=== PATIENT | female | born 1990 | race Caucasian/White ===

== ENCOUNTER 2017-09-23 12:35 | Emergency (ER) | payer SELFPAY | END 2017-09-23 13:03 | disposition home or self-care (01) | LOC: E/R 12:35 | DX: J20.9 Acute bronchitis, unspecified (principal) | CPT/HCPCS: 99284 ==

== ENCOUNTER 2018-09-07 19:17 | Outpatient (CLI) | payer MEDICAID | END 2018-09-07 22:35 | disposition home or self-care (01) | LOC: OBT 19:17 → L-D 19:19 → OBT 22:35 | DX: O26.853 Spotting complicating pregnancy, third trimester (principal); Z3A.38 38 weeks gestation of pregnancy | CPT/HCPCS: 76818 ==

== ENCOUNTER 2018-09-11 17:35 | Inpatient (IN) | payer MEDICAID ==
[2018-09-11] MEDS: LACTATED RINGER'S 1,000 ML IV ×2 (19:02→20:50)
[2018-09-11] MEDS ORDERED: IBUPROFEN 600 MG TAB PO (20:30)
[2018-09-11] MEDS ORDERED: MISOPROSTOL 200 MCG TAB PR (20:30)
[2018-09-11] MEDS ORDERED: BUTORPHANOL 1 MG INJ IV (20:30)
[2018-09-11] MEDS ORDERED: MINERAL OIL LIGHT 10 ML VIAL TOP (20:30)
[2018-09-11] MEDS ORDERED: LIDOCAINE 1% (MPF) 30 ML INJ INJ (20:30)
[2018-09-11] MEDS ORDERED: BUTORPHANOL 2 MG INJ IV (20:30)
[2018-09-11] MEDS ORDERED: OXYTOCIN 30 UNITS/LR 500 ML IV ×3 (20:30)
[2018-09-11] MEDS ORDERED: CARBOPROST 250 MCG INJ IM (20:30)
[2018-09-11] MEDS: OXYTOCIN 30 UNITS/LR 500 ML IV (22:44)
[2018-09-11 23:37] LABS: ADD MAN DIFF? NO
[2018-09-11 23:38] LABS: WHITE BLOOD COUNT 11.9 10^3/ul (4.8-10.8)
[2018-09-11 23:38] LABS: ABNORMAL IP MESSAGE 1; BASOPHILS % 0.3 % (0.0-2.0); EOSINOPHILS # 0.1 10^3/ul (0.0-0.5); EOSINOPHILS % 0.4 % (0.0-7.0); HEMATOCRIT 29.6 % (37.0-47.0); HEMOGLOBIN 9.9 g/dl (12.0-16.0); LYMPHOCYTES # 2.1 10^3/ul (0.8-2.9); LYMPHOCYTES % 17.9 % (15.0-51.0); MEAN CORPUSCULAR HGB CONC 33.4 g/dl (32.0-37.0); MEAN CORPUSCULAR VOLUME 89.7 fl (82.0-101.0); MEAN PLATELET VOLUME 13.5 fl (7.4-10.4); MONOCYTE # 0.8 10^3/ul (0.3-0.9); MONOCYTES % 6.8 % (0.0-11.0); NEUTROPHIL # 8.8 10^3/ul (1.6-7.5); NEUTROPHILS % 74.2 % (39.0-77.0); PLATELET COUNT 185 10^3/UL (140-415)
[2018-09-11 23:50] LABS: POSITIVE DIFF @See below
[2018-09-11 23:57] LABS: INR 0.82; PARTIAL THROMBOPLASTIN TIME 26.1 Sec (23.0-35.0); PROTIME 11.4 Sec (11.9-14.9); PT RATIO 0.9
[2018-09-12 00:26] LABS: HEPATITIS B SURFACE ANTIGEN NEGATIVE (NEGATIVE)
[2018-09-12] MEDS: LACTATED RINGER'S 1,000 ML IV ×2 (04:26→19:02)
[2018-09-12] MEDS: OXYTOCIN 30 UNITS/LR 500 ML IV ×2 (08:49→23:04)
[2018-09-12 15:04] LABS: RAPID PLASMA REAGIN NONREACTIVE (NR)
[2018-09-13] MEDS: LACTATED RINGER'S 1,000 ML IV ×3 (05:47→21:33)
[2018-09-13 10:31] LABS: AMPHETAMINE/METHAMPHETAMINE Negative (NEGATIVE); BARBITURATES Negative (NEGATIVE); BENZODIAZEPINES Negative (NEGATIVE); CANNABINOIDS Negative (NEGATIVE); COCAINE Negative (NEGATIVE); OPIATES Negative (NEGATIVE)
[2018-09-14] MEDS: MISOPROSTOL 50 MCG CAPSULE PO ×5 (01:16→13:00)
[2018-09-14] MEDS: LACTATED RINGER'S 1,000 ML IV ×6 (02:52→21:49)
[2018-09-14] MEDS ORDERED: AMPICILLIN 2 GM/NS (PMX) 100 ML (15:54)
[2018-09-14] MEDS: AMPICILLIN 2 GM/NS (PMX) 100 ML IVPB (16:02)
[2018-09-14] MEDS ORDERED: AMPICILLIN 1 GM/NS (PMX) 50 ML (18:56)
[2018-09-14] MEDS: AMPICILLIN 1 GM/NS (PMX) 50 ML IVPB (20:16)
[2018-09-14] MEDS: OXYTOCIN 30 UNITS/LR 500 ML IV (21:37)
[2018-09-14] MEDS ORDERED: NALOXONE (0.4 MG/ML) INJ IV (22:00)
[2018-09-15] MEDS: AMPICILLIN 1 GM/NS (PMX) 50 ML IVPB ×4 (00:04→11:53)
[2018-09-15] MEDS: ONDANSETRON 4 MG INJ IV (03:14)
[2018-09-15] MEDS: FENTAnyl 2MCG/ML-ROPIV 0.2% 100 ML BAG EPI ×2 (05:28→11:13)
[2018-09-15] MEDS: LACTATED RINGER'S 1,000 ML IV ×2 (05:30→15:54)
[2018-09-15] MEDS ORDERED: ACETAMINOPHEN 500 MG TAB (08:15)
[2018-09-15] MEDS: ACETAMINOPHEN 500 MG TAB PO (08:22)
[2018-09-15] MEDS: GENTAMICIN 80 MG/NS (PMX) 50 ML IVPB (08:28)
[2018-09-15] MEDS: DEXTROSE 5%-LR 1,000 ML IV (09:44)
[2018-09-15] MEDS ORDERED: LIDOCAINE 1.5%/EPI MPF (SDV) 30 ML VIAL (16:23)
[2018-09-15] MEDS ORDERED: FENTAnyl 50 MCG/ML VIAL (16:24)
[2018-09-15] MEDS: CLINDAMYCIN 900 MG/D5W (PMX) 50 ML IVPB (16:25)
[2018-09-15] MEDS ORDERED: DEXAMETHASONE 4 MG/ML 1 ML INJ (16:34)
[2018-09-15] MEDS ORDERED: CLINDAMYCIN 900 MG/D5W (PMX) 50 ML IVPB (16:39)
[2018-09-15] MEDS ORDERED: morphine SULFATE/PF (10 MG/10 ML) INJ (16:58)
[2018-09-15] MEDS ORDERED: HYDROmorphONE 0.5 MG/0.5 ML SYG IV ×2 (17:30)
[2018-09-15] MEDS ORDERED: NALOXONE (0.4 MG/ML) INJ IV (17:30)
[2018-09-15] MEDS ORDERED: DIPHENHYDRAMINE 50 MG INJ IV (17:30)
[2018-09-15] MEDS ORDERED: ONDANSETRON 4 MG INJ IV (17:30)
[2018-09-15] MEDS ORDERED: ZOLPIDEM 5 MG TAB PO (17:30)
[2018-09-15 17:36] LABS: CBV Base Excess -7.8 mmol/L; CBV COHb 0.5 %; CBV Oxygen Sat 25.2 mmHG; CBV Total Hemglobin 16.5 g/dl; Cord Blood Venous AADO2 89.2 mmHg; Cord Blood Venous pO2 13.6 mmHG (15.0-45.0); Fraction OxyHgb Cord Venous 24.6 %; MODE ROOM AIR; MetHgb Cord Venous 1.9 %; Sample Type CBV; Site CORD
[2018-09-15] MEDS ORDERED: CARBOPROST 250 MCG INJ IM (18:00)
[2018-09-15] MEDS ORDERED: OXYTOCIN 30 UNITS/LR 500 ML IV (18:00)
[2018-09-15] MEDS ORDERED: METHYLERGONOVINE 0.2 MG TAB PO (18:00)
[2018-09-15] MEDS ORDERED: METHYLERGONOVINE 0.2 MG INJ IM (18:00)
[2018-09-15] MEDS ORDERED: MISOPROSTOL 200 MCG TAB PR (18:00)
[2018-09-15] MEDS: METHYLERGONOVINE 0.2 MG INJ IM (18:39)
[2018-09-15] MEDS: OXYTOCIN 30 UNITS/LR 500 ML IV ×3 (19:31→19:36)
[2018-09-15] MEDS: ACETAMINOPHEN 1000MG/100ML IV 100 ML IVPB (19:39)
[2018-09-15] MEDS: SENNA/DOCUSATE NA (8.6MG/50MG) TAB PO (21:00)
[2018-09-15] MEDS: PIPER-TAZO 3.375 GM IV (PMX) 100 ML IVPB (22:31)
[2018-09-16] MEDS: DEXTROSE 5%-LR 1,000 ML IV ×4 (01:45→17:45)
[2018-09-16] MEDS: KETOROLAC 30 MG INJ IV ×2 (05:28→11:34)
[2018-09-16] MEDS: PIPER-TAZO 3.375 GM IV (PMX) 100 ML IVPB ×3 (05:52→21:18)
[2018-09-16] MEDS: CEFAZOLIN 2 GM/50 ML (PMX) 50 ML IVPB (08:01)
[2018-09-16 08:13] LABS: WHITE BLOOD COUNT 19.9 10^3/ul (4.8-10.8)
[2018-09-16 08:13] LABS: ABNORMAL IP MESSAGE 1; HEMATOCRIT 23.5 % (37.0-47.0); HEMOGLOBIN 7.7 g/dl (12.0-16.0); MEAN CORPUSCULAR HEMOGLOBIN 30.2 pg (29.0-33.0); MEAN CORPUSCULAR HGB CONC 32.8 g/dl (32.0-37.0); MEAN CORPUSCULAR VOLUME 92.2 fl (82.0-101.0); MEAN PLATELET VOLUME 12.5 fl (7.4-10.4); PLATELET COUNT 184 10^3/UL (140-415); RED BLOOD COUNT 2.55 10^6/ul (4.20-5.40); RED CELL DISTRIBUTION WIDTH 12.4 % (11.5-14.5)
[2018-09-16 08:20] LABS: POSITIVE DIFF @See below
[2018-09-16 08:21] LABS: ADD MAN DIFF? YES
[2018-09-16] MEDS: SENNA/DOCUSATE NA (8.6MG/50MG) TAB PO ×2 (08:53→21:17)
[2018-09-16 09:00] LABS: ANISOCYTOSIS 1+ (0-0); BAND NEUTROPHILS #M 0.9 10^3/ul (0.0-0.6); BAND NEUTROPHILS % (M) 5 % (0-4); BURR CELLS 2+ (0-0); GIANT THROMBO% (M) 1 % (0-0); LYMPHOCYTES #M 1.7 10^3/ul (0.8-2.9); LYMPHOCYTES % (M) 9 % (15-51); MICROCYTOSIS 1+ (0-0); MONOCYTE #M 1.3 10^3/ul (0.3-0.9); MONOCYTES % (M) 7 % (0-11); PLATELET ESTIMATE NORMAL; POIKILOCYTOSIS 2+ (0-0); SEG NEUT #M 15.9 10^3/ul (1.6-7.5); SEGMENTED NEUTROPHILS (M) % 79 % (39-77); SMUDGE%M 3 % (0-0)
[2018-09-16] MEDS ORDERED: VITAMIN A & D 5 GM OINT PACKET TOP (10:16)
[2018-09-16] MEDS ORDERED: DIPHTH/TET/ACEL PERTUSS (ADULT) 0.5 ML VIAL IM* (11:00)
[2018-09-16] MEDS: HYDROCODONE/APAP (5/325) TAB PO ×3 (14:00→21:18)
[2018-09-16] MEDS: LANOLIN HPA 1 PKT TOP (18:53)
[2018-09-16] MEDS: MAGNESIUM HYDROXIDE 30ML CUP PO (21:17)
[2018-09-16] MEDS: IBUPROFEN 800 MG TAB PO (21:17)
[2018-09-17] MEDS: DEXTROSE 5%-LR 1,000 ML IV ×3 (01:45→17:45)
[2018-09-17] MEDS: HYDROCODONE/APAP (5/325) TAB PO ×6 (02:28→21:38)
[2018-09-17] MEDS: PIPER-TAZO 3.375 GM IV (PMX) 100 ML IVPB ×3 (06:11→22:51)
[2018-09-17] MEDS: IBUPROFEN 800 MG TAB PO ×3 (06:12→21:39)
[2018-09-17] MEDS: SENNA/DOCUSATE NA (8.6MG/50MG) TAB PO ×2 (08:53→21:38)
[2018-09-18] MEDS: DEXTROSE 5%-LR 1,000 ML IV ×2 (01:45→09:45)
[2018-09-18] MEDS: HYDROCODONE/APAP (5/325) TAB PO ×5 (02:32→17:44)
[2018-09-18] MEDS: PIPER-TAZO 3.375 GM IV (PMX) 100 ML IVPB (05:31)
[2018-09-18] MEDS: IBUPROFEN 800 MG TAB PO ×2 (05:35→13:22)
[2018-09-18] MEDS: DIPHTH/TET/ACEL PERTUSS (ADULT) 0.5 ML VIAL IM* (09:00)
[2018-09-18] MEDS: MEASLES,MUMPS,RUBELLA VACCINE INJ SC* (09:00)
[2018-09-18] MEDS: SENNA/DOCUSATE NA (8.6MG/50MG) TAB PO (09:36)
[2018-09-18 11:18] LABS: ADD MAN DIFF? NO
[2018-09-18 11:20] LABS: BASOPHILS % 0.4 % (0.0-2.0); EOSINOPHILS # 0.3 10^3/ul (0.0-0.5); HEMATOCRIT 23.6 % (37.0-47.0); HEMOGLOBIN 7.5 g/dl (12.0-16.0); LYMPHOCYTES # 2.6 10^3/ul (0.8-2.9); LYMPHOCYTES % 23.1 % (15.0-51.0); MEAN CORPUSCULAR HEMOGLOBIN 29.9 pg (29.0-33.0); MEAN CORPUSCULAR HGB CONC 31.8 g/dl (32.0-37.0); MEAN PLATELET VOLUME 11.4 fl (7.4-10.4); MONOCYTE # 0.6 10^3/ul (0.3-0.9); MONOCYTES % 5.5 % (0.0-11.0); NEUTROPHIL # 7.5 10^3/ul (1.6-7.5); NEUTROPHILS % 67.4 % (39.0-77.0); PLATELET COUNT 311 10^3/UL (140-415); RED BLOOD COUNT 2.51 10^6/ul (4.20-5.40); RED CELL DISTRIBUTION WIDTH 13.1 % (11.5-14.5)
[2018-09-18 11:20] LABS: WHITE BLOOD COUNT 11.2 10^3/ul (4.8-10.8)
== END 2018-09-18 18:25 | disposition home or self-care (01) | DRG 788 ==
LOC: OBT 17:35 → L-D 09-15 16:38 → OBT 20:01 → PP1 09-15 20:50 → L-D 20:01
PROVIDERS: Obstetrics & Gynecology
PROC: 10D00Z1 Extraction of Products of Conception, Low, Open Approach (ICD-10-PCS; principal; 2018-09-15 16:45)
DX: O62.0 Primary inadequate contractions (principal); Z3A.38 38 weeks gestation of pregnancy; Z37.0 Single live birth
CPT/HCPCS: 36415; 62319; 76816; 76818; 80307; 82803; 85025; 85610; 85730; 86592; 86850; 86900; 86901; 87340; 88307; 90715; 96360; 96361